=== PATIENT | male | born 1955 | race Two or more races ===

== ENCOUNTER 2018-01-24 06:30 | Emergency (ER) | payer SELFPAY ==
[~2018-01-24] VITALS: Ht 175.3 cm; Wt 78.5 kg
[2018-01-24 06:35] VITALS: Ht 175.3 cm; Wt 78.5 kg
[2018-01-24 07:22] LABS: BASOPHIL % 0.7 % (0-2); PLATELET COUNT 293 x10^3mcL (130-400); RED CELL DISTRIBUTION WIDTH 13.5 % (11.5-14.5)
[2018-01-24 07:28] LABS: CALCIUM 8.1 mg/dL (8.5-10.1); CHLORIDE SERUM 99 mmol/L (98-107); CREATININE SERUM 0.8 mg/dL (0.7-1.3); GFR1 > 60 mL/min; GLUCOSE SERUM 110 mg/dL (74-106); POTASSIUM SERUM 4.4 mmol/L (3.5-5.1); SODIUM SERUM 134 mmol/L (136-145)
[2018-01-24 07:34] LABS: ALKALINE PHOSPHATASE 51 U/L (46-116); ALT/SGPT 32 U/L (16-63); AST/SGOT 27 U/L (15-37); BILIRUBIN TOTAL 0.3 mg/dL (0.20-1.00); TOTAL PROTEIN, SERUM 7.1 g/dL (6.4-8.2)
[2018-01-24 07:39] LABS: ALBUMIN 3.3 g/dL (3.4-5.0)
[2018-01-24 08:48] LABS: AMPHETAMINE QUAL UR NONE DETECTED (See below)
[2018-01-24 12:46] LABS: CK-MB < 0.5 ng/mL (0-3.6); CREATINE KINASE 65 U/L (39-308)
[2018-01-24 12:49] VITALS: BP 113/68
== END 2018-01-24 12:49 | disposition home or self-care (01) ==
LOC: ED 06:30
PROVIDERS: Emergency Medicine
DX: R07.89 Other chest pain (principal); Z85.818 Personal history of malignant neoplasm of other sites of lip, oral cavity, and pharynx
CPT/HCPCS: 36415; 83880; Q0092